=== PATIENT | male | born 1965 | race Two or more races ===

== ENCOUNTER 2022-12-03 15:37 | Emergency (ER) | payer OTHER ==
[~2022-12-03] VITALS: Ht 165.1 cm; Wt 70.8 kg
--- NOTE | 2022-12-03 16:00 | NUR ---
C/O DIZZINESS "ROOM SPINNING ALL DAY THIS MORNING". NO SLURRED SPEECH, NO UNILATERAL WEAKNESS OR DRIFT NOTED.
--- NOTE | 2022-12-03 16:10 | NUR ---
AT BEDSIDE FOR EVAL
[2022-12-03] MEDS ORDERED: MECLIZINE HCL 12.5 MG TABLET PO ONE (17:00)
[2022-12-03] MEDS ORDERED: MECLIZINE HCL 25 MG TABLET ONE (17:02)
--- NOTE | 2022-12-03 17:03 | NUR ---
TAKEN TO CT
[2022-12-03 17:49] LABS: BASOPHILS % (AUTO) 0.2 % (0.0-2.0); EOSINOPHILS % (AUTO) 3.4 % (0.0-6.0); HEMATOCRIT 45 % (39-51); HEMOGLOBIN 14.4 g/dL (13.5-17.5); LYMPHOCYTES # (AUTO) 1.5 K/uL (0.8-4.8); MEAN CORPUSCULAR HGB CONC 33 g/dl (31.0-36.0); MEAN CORPUSCULAR VOLUME 87 fL (80-96); MONOCYTES # (AUTO) 0.5 K/uL (0.1-1.30); MONOCYTES % (AUTO) 8.9 % (2.0-12.0); NEUTROPHILS # (AUTO) 3.9 K/uL (1.8-8.9); NEUTROPHILS % (AUTO) 62.5 % (43.0-81.0); PLATELET COUNT (AUTO) 215 K/uL (150-450); RED BLOOD CELL COUNT(AUTO) 5.09 MIL/uL (4.5-6.0); WHITE BLOOD COUNT (AUTO) 6.2 K/uL (4.3-11.0)
[2022-12-03 17:55] LABS: CALCIUM, SERUM 8.9 mg/dL (8.5-10.1); POTASSIUM 3.6 mmol/L (3.5-5.1)
[2022-12-03] MEDS ORDERED: MECL-159 PO (18:16)
[2022-12-03] MEDS ORDERED: AMOX-430 PO (18:16)
[2022-12-03] MEDS ORDERED: PSEU120T83 PO (18:16)
--- NOTE | 2022-12-03 18:31 | NUR ---
IV removed. Catheter intact and site benign. Pressure and 4x4 applied to site. No bleeding noted.
--- NOTE | 2022-12-03 18:31 | NUR ---
Patient discharged to home in stable condition. Written and verbal after care instructions given. Patient verbalizes understanding of instruction.
[2022-12-03 18:32] VITALS: BP 131/79
== END 2022-12-03 18:32 | disposition home or self-care (01) ==
LOC: ER 15:40
DX: R42 Dizziness and giddiness (principal); J32.9 Chronic sinusitis, unspecified; Z60.2 Problems related to living alone
CPT/HCPCS: 99285; 70450; 71045; 93005; 85025; 80048; 85652; 36415; J8597